=== PATIENT | male | born 1990 | race Caucasian/White ===

== ENCOUNTER 2017-11-02 00:42 | Emergency (ER) | payer OTHER ==
[~2017-11-02] VITALS: Ht 188 cm; Wt 95.5 kg
[2017-11-02] MEDS ORDERED: ONDANSETRON 2MG/ML, 2ML ONE (01:09)
[2017-11-02 01:30] LABS: HEMATOCRIT 47.7 % (39.2-51.8); WHITE BLOOD COUNT 11.7 x10^3/uL (3.4-10)
[2017-11-02] MEDS ORDERED: MORPHINE SULFATE 4 MG/ML, 1ML IVPush PRN (01:30)
[2017-11-02] MEDS ORDERED: SODIUM CHLORIDE FLUSH 10ML SYR IVF ONE (01:30)
[2017-11-02] MEDS ORDERED: ONDANSETRON 2MG/ML, 2ML IVPush ONE (01:30)
[2017-11-02] MEDS ORDERED: SODIUM CHLORIDE 0.9% 1,000ML IVBOLUS ONE (01:30)
[2017-11-02 01:37] LABS: ASPARTATE AMINO TRANSFERASE 20 U/L (15-37); BLOOD UREA NITROGEN 16 mg/dL (7-18)
[2017-11-02 02:58] VITALS: BP 132/69
== END 2017-11-02 03:01 | disposition home or self-care (01) ==
LOC: ED 02:55
DX: R10.31 Right lower quadrant pain (principal); R10.11 Right upper quadrant pain; R11.0 Nausea
CPT/HCPCS: 36415; 80053; 81001; 83690; 85025; 96361; 96374; 99284; J2405; J7030

== ENCOUNTER 2019-04-29 12:34 | Emergency (ER) | payer OTHER ==
[~2019-04-29] VITALS: Ht 185.4 cm; Wt 84.2 kg
[~2019-04-29 12:34] MED LIST: OXYC-306 PO
--- NOTE | 2019-04-29 14:33 | NUR ---
Pt seen by [facility]. Called from lobby- is in [place] then will go to rm [facility]
[2019-04-29 14:56] LABS: BASOPHILS # (AUTO) 0.02 x10^3/uL (0-0.1); BASOPHILS % (AUTO) 0 % (0-1); EOSINOPHILS # (AUTO) 0.03 x10^3/uL (0-0.4); EOSINOPHILS % (AUTO) 0 % (1-7); LYMPHOCYTES # (AUTO) 2.03 x10^3/uL (1-3.4); LYMPHOCYTES % (AUTO) 20 % (22-44); MD NO; MEAN CORPUSCULAR HEMOGLOBIN 28.6 pg (27.5-34.5); MEAN CORPUSCULAR HGB CONC 33.6 g/dL (33.2-36.2); MEAN PLATELET VOLUME 6.9 fL (7.4-10.4); MONOCYTES # (AUTO) 0.63 x10^3/uL (0.2-0.8); MONOCYTES % (AUTO) 6 % (2-9); NEUTROPHILS # (AUTO) 7.32 x10^3/uL (1.8-6.8); NEUTROPHILS % (AUTO) 73 % (42-75); PLATELET COUNT 374 x10^3/uL (130-400); RED BLOOD COUNT 4.87 x10^6/uL (4.38-5.82); RED CELL DISTRIBUTION WIDTH 17.1 % (9.4-14.8)
--- NOTE | 2019-04-29 15:21 | NUR ---
First contact with pt. Pt c/o RLQ abd pain since 1100 today. Pt states hx of appendicitis and елена colectomy. Pt states pain is 1/10 now, was 10/10 at the onset. Pt resting in bed, NADN, denies needs. Urine sample collected, sent to lab.
[2019-04-29 15:23] VITALS: BP 129/63
[2019-04-29 15:26] LABS: ALANINE AMINOTRANSFERASE 24 U/L (12-78); ALBUMIN 3.9 g/dL (3.4-5.0); ANION GAP 5 mmol/L (5-15); CALCIUM 9.2 mg/dL (8.5-10.1); CHLORIDE 109 mmol/L (98-107); CREATININE 0.96 mg/dL (0.7-1.3)
[2019-04-29 15:28] LABS: ALKALINE PHOSPHATASE 117 U/L (45-117); BILIRUBIN,TOTAL 0.7 mg/dL (0.2-1.0); TOTAL PROTEIN 8.5 g/dL (6.4-8.2)
[2019-04-29 15:32] LABS: MICROSCOPIC NOT IND
[2019-04-29 15:39] LABS: CULTURE INDICATED? NO
== END 2019-04-29 16:01 | disposition home or self-care (01) ==
LOC: ED 14:58
DX: R10.11 Right upper quadrant pain (principal)
CPT/HCPCS: 36415; 74021; 76700; 80053; 81003; 83690; 85025; 99284